=== PATIENT | male | born 1965 | race Caucasian/White ===

== ENCOUNTER 2016-07-10 09:40 | Inpatient (IN) ==
[2016-07-10] MEDS ORDERED: SODIUM CHLORIDE 0.9% 500 ML IV STA (09:55)
[2016-07-10 10:10] LABS: Basophils # 0.1 10*3/uL (0.0-0.2); Basophils % 1.1 % (0.0-0.8); Eosinophils # 0.1 10*3/uL (0.0-0.87); Eosinophils % 1.7 % (0.00-10.9); Hematocrit 41.1 VOL% (42.0-52.0); Hemoglobin 13.6 GM/DL (14.0-18.0); Immature Granulocytes Absolute 0.08 #; Lymphocytes # 1.1 10*3/uL (1.4-4.0); Lymphocytes % 14.6 % (21.2-54.2); Mean Corpuscular HGB Conc 33.1 GM/DL (32-36); Mean Corpuscular Hemoglobin 28 PG (27-34); Mean Corpuscular Volume 83.7 FL (87-102); Mean Platelet Volume 8.9 FL (9.6-12.0); Monocytes # 0.4 10*3/uL (0.11-0.8); Monocytes % 5.6 % (1.7-12.7); Platelet Count 275 T/CUMM (130-400); Red Blood Count 4.91 MC/CUMM (3.8-5.5); White Blood Count 7.8 T/CUMM (4-12)
[2016-07-10 10:20] LABS: INR 0.9; PT Patient Result 9.9 SECS; Partial Thromboplastin Time 28.3 SECS (0-40)
--- NOTE | 2016-07-10 10:25 | XRay Report ---
XR chest 1V portable Indication: Altered mental status. Comparison: Chest x-ray 03/16/2008. Technique: Portable AP chest was performed. Findings: Heart size, mediastinal contour, and hilar structures demonstrate no significant abnormalities. The lung parenchyma is clear. Bones and soft tissues demonstrate no significant abnormalities. Impression: 1. No evidence of acute pathology. 07/10/2016 10:22 AM PROCEDURE INTERPRETED AT [facility] DEPARTMENT OF RADIOLOGY Final Report Signed by: Dr. Orlando Acosta
--- NOTE | 2016-07-10 10:30 | CT Report ---
History: Mental status changes Date: 07/10/2016 Study: CT head without contrast Comparison exam: No previous similar available Transaxial CT sections were obtained through the head without IV contrast. This CT exam was performed using one or more the following dose reduction techniques: Automated exposure control, adjustment of the MA and/or KV according to patient size, or use of iterative reconstruction technique. The ventricles are midline in position without evidence of hydrocephalus. There is no mass or parenchymal hemorrhage. There is no gross CT evidence of acute cortical stroke. There is no extra-axial hematoma. There is some moderate polypoid mucosal thickening in the maxillary and ethmoid sinuses. There is evidence of previous sinus surgery with bilateral nasal antral window procedure. With regards to the sinus disease, there are some focal polypoid mucosal thickening overlying the right nasal antral window area measuring up to 18 mm. There is no acute abnormality of the bony calvarium. Impression: No acute intracranial process. Chronic sinus disease with asymmetric polypoid component on the right. Because of the asymmetric polypoid component on the right, it is recommended that patient have some clinical ENT follow-up, as the possibility of underlying sinus neoplasm cannot be completely excluded based on this single imaging study alone. PROCEDURE INTERPRETED AT [facility] DEPARTMENT OF RADIOLOGY Final Report Signed by: Dr. Kell Flores
--- NOTE | 2016-07-10 10:40 | Emergency Department Note ---
Marcial Yu Hilary, am scribing for, and in the presence of, Isidro Mcgee MD 10: 24. rAely Yu James D, MD, personally performed the services described in this documentation, ascribed by Rosey Ceja in my presence, and it is both accurate and complete . Arrival - Arrival Chief Complaint: Altered Mental Status Stated Complaint: DIABETIC-SICK ED Nursing Triage Note: Mom states that he has been confused and vomiting onset this am - accu check at time of triage 62 - pt is diaphoretic Mode of Arrival: Wheelchair Limitations: No Limitations Source: Patient, RN Notes Reviewed Time Seen by Provider: 07/10/16 09:55 - History of Present Illness HPI Narrative: Pt is a 51 y/o male presenting to the ED with c/o confusion. Pts mother is in the room and gives the history but the Hx is limited due to his AMS. She states that he came to her house this morning and states that he didnt feel well and needed to go to the ER. Pt repeatedly states "give me my sunton and my srini" but doesn't elaborate. Pt confirms confusion and vomiting. Pt has a PMHx of IDDM. Onset (ago): hour(s) Allergies/Adverse Reactions: Allergies Allergy/AdvReac Type Severity Reaction Status Date / Time No Known Allergies Allergy Unverified 07/10/16 09:43 Home Medications: Home Medications Medication Instructions Recorded Confirmed Type Albiglutide [Tanzeum] 50 mg SUBCUT Q7D 07/10/16 07/10/16 History Insulin Glargine,Hum.rec.anlog 0 unit SUBCUT BEDTIME 07/10/16 07/10/16 History [Lantus SoloStar] Insulin Lispro [HumaLOG KwikPen] 35 unit SUBCUT TID 07/10/16 07/10/16 History Liraglutide [Victoza 2-Zack] 1.8 mg SUBCUT DAILY 07/10/16 07/10/16 History Losartan Potassium 200 mg PO DAILY 07/10/16 07/10/16 History Metformin HCl [Metformin HCl ER] 2,000 mg PO BEDTIME 07/10/16 07/10/16 History Olmesartan/Amlodipin/Hcthiazid 1 each PO DAILY 07/10/16 07/10/16 History [Nbdkoxj-Zksuqs-Nvfr 40-5-12.5] Simvastatin 40 mg PO DAILY 07/10/16 07/10/16 History amLODIPine [Norvasc] 5 mg PO DAILY 07/10/16 07/10/16 History Review of System - Review of System ROS unobtainable: due to mental status 12 point system: reviewed and no additional remarkable complaints except as stated - Review of System Constitutional: Present: other (Confusion) Gastrointestinal: Present: vomiting Medical,Surgical,& Family Hx - Medical History Endocrine: History of: Diabetes Mellitus (IDDM) - Social History Smoking Status: Never smoker Frequency of Alcohol Use: None Type of Drug Use: None Exam Physical Examination: GENERAL: Slightly agitated, delirious white male. Follows commands but wont answer questions. VITAL SIGNS: Temperature: 97.8 Pulse: 110 Respiratory: 22 Blood Pressure: 139/77 O2Sat: 97 HEENT: Head is normocephalic and atraumatic. Pupils are equally round and reactive to light. Extraocular movement are intact. Oropharynx is benign with moist mucous membranes. NECK: Neck is soft and supple without tenderness. There are no masses. There is no lymphadenopathy. LUNGS: Lungs are clear to auscultation bilaterally. Chest rises symmetrically. There is no chest wall tenderness. CV: Heart is regular rate and rhythm without murmurs, rubs, or gallops. ABDOMEN: Abdomen is soft, non-tender to palpation. There are no abnormal masses palpated. There is no organomegaly. Bowel sounds are present and active. SKIN: Skin is warm and dry. No rash. EXTREMITIES: Patient has full range of motion without tenderness. There is no pedal edema. NEUROLOGIC: Awake, alert, and oriented x4. Cranial nerves II through XII are grossly intact. There are no motorsensory deficits. PSYCHIATRIC: Normal affect. Normal mood. Vital Signs: Vital Signs Temperature 97.8 F 07/10/16 09:50 Pulse Rate 110 H 07/10/16 09:50 Respiratory Rate 22 07/10/16 09:50 Blood Pressure 139/77 07/10/16 09:50 O2 Sat by Pulse Oximetry 97 07/10/16 09:43 Course - Consultations Consultation #1: Discussed with hospitalist. Patient will be admitted to their service Time: 12:12 Results - Labs CBC & BMP: 07/10/16 09:54 07/10/16 09:54 Lab Results: I have reviewed the patients labs Labs: Laboratory Tests 07/10/16 07/10/16 09:54 09:54 WBC 7.8 RBC 4.91 Hgb 13.6 L Hct 41.1 L MCV 83.7 L MPV 8.9 L Neut % (Auto) 76.0 H Lymph % (Auto) 14.6 L Baso % (Auto) 1.1 H Lymph # (Auto) 1.1 L Ammonia 33 H Laboratory Tests 07/10/16 09:54 Ammonia 33 H Troponin I < 0.015 TSH 3rd Generation 0.886 Laboratory Tests 07/10/16 07/10/16 07/10/16 09:54 10:42 Unknown Sodium 141 Potassium 4.1 Chloride 105 Carbon Dioxide 26 Glucose 65 L Urine Color Yellow Urine Appearance Clear Urine Urobilinogen < 2.0 H Serum Alcohol < 15 L - Diagnostic Findings Procedure: Chest x-ray: report reviewed by me, image reviewed by me (1. No evidence of acute pathology), CT: image reviewed by me (CT head: No acute intracranial lesion or hemorrhage.) Disposition Clinical Impression: Altered mental status, Delirium, Hypoglycemia Case discussed with: patient, patient's family Disposition: Still a Patient Condition: Guarded Time of Disposition: 12:12
[2016-07-10 10:48] LABS: Ammonia 33 UMOL/L (11-32)
[2016-07-10 10:57] LABS: Apearance,Urine CLEAR (Clear); Bilirubin,Urine Negative (Negative); Blood, Urine Negative (Negative); Glucose,Urine (UA) 50 mg/dL (Negative); Hyaline Casts,Urine 1 /LPF (0-3); Ketones,Urine Negative (Negative); Nitrite,Urine Negative (Negative); Protein,Urine Negative; RBC,Urine 2 /HPF (0-4); Urine Color Yellow (Yellow); Urine Specific Gravity 1.024 (1.001-1.035); Urine Urobilinogen < 2.0 EU/DL (0.2-1.0); WBC,Urine <1 /HPF (0-6)
[2016-07-10 11:00] LABS: Alanine Aminotransferase 32 U/L (16-61); Albumin 4.1 G/DL (3.4-5.0); Alkaline Phosphatase 78 U/L (45-117); Aspartate Amino Transferase 24 U/L (0-37); Blood Urea Nitrogen 16 MG/DL (7-18); Calcium 9.1 MG/DL (8.5-10.1); Glucose 65 MG/DL (74-106); Osmolality,Calculated 279.3 MOS/KG (273-304); Potassium 4.1 MMOL/L (3.5-5.1); Sodium 141 MMOL/L (136-145); Thyroid Stimulating Hormone 0.886 uIU/ml (0.358-3.74); Troponin I Only < 0.015 NG/ML (0.00-0.045)
[2016-07-10 11:03] LABS: Barbiturates Screen,Urine Negative (Negative); Benzodiazepines Screen,Urine Negative (Negative); Cannabinoid Screen,Urine Negative (Negative); Opiate Screen,Urine Negative (Negative); Phencyclidine Screen,Urine Negative (Negative)
[2016-07-10] MEDS ORDERED: DEXTROSE 50% 25 GM/50 ML VIAL IV STA (11:05)
[2016-07-10] MEDS ORDERED: DEXTROSE 50% 25 GM/50 ML VIAL IV ONE (11:06)
[2016-07-10] MEDS ORDERED: ONDANSETRON 4 MG/2 ML VIAL ONE (12:30)
[2016-07-10] MEDS ORDERED: ONDANSETRON 4 MG/2 ML VIAL IV STA (12:31)
--- NOTE | 2016-07-10 13:29 | Hospitalist History & Physical ---
Assessment and Plan (1) Altered mental status Status: Acute Assessment and plan: The patient presented grossly altered; however the origin of his altered mental status has not yet been identified. Urinalysis was essentially negative, toxicology reports were negative and CT scan was unremarkable. There was a slight elevation in the patient's ammonia level. This altered mental status may have been related to his hypoglycemic episode. The family adamantly denied any illicit drug or alcohol use; however the family did report an episode similar in nature before when the patient accidentally took his insulin twice in 1 day. This may be the case however; we will follow closely and monitor. The patient will be placed in intensive care for close observation. Current Visit: Yes (2) Hypoglycemia Status: Acute Assessment and plan: Blood glucose levels were noted at 65 at the time of admission, the patient was given dextrose 50%. His blood sugars did improve. We will start Accu-Cheks with sliding scale coverage, obtain a hemoglobin A1c, and monitor closely. Current Visit: Yes History of Present Illness Chief complaint: altered mental status History of present illness: This is a pleasantly confused 51-year-old male that presented to the ED at [facility] for the evaluation of altered mental status. The patient has a medical history significant for insulin dependent diabetes mellitus, hypertension, dyslipidemia, and morbid obesity. There is no surgical history reported at the time of admission. The patient presented grossly altered. His family is at bedside, they will serve historians. His brother reports that the patient started experiencing symptoms earlier this morning. He went to his mother's house and informed her that he did not feel well and that he needed to go to the ED. His brother also reported that he is spoke with the patient on last night and that the patient was at his normal state. During the conversation his brother reports that the patient told him that he was about to have dinner the and go to bed. He reports that this is not his brothers were normal mental state. He reports that his brother lives alone, drives his own car, and has gainful employment. His brother denies any knowledge of his brother's use of any illicit drugs or alcohol. His mother became alarmed and transported him to the ED for further evaluation. At the time of ED presentation, the patient was noted to be experiencing hypoglycemia with a blood sugar noted at 62. He was diaphoretic and complained of nausea. His speech was bizarre and not easily understood. The patient was given dextrose 5% intravenously and his blood sugars improved to 119. Labs were obtained which revealed a hemoglobin of 13.6, hematocrit of 41.4, TSH of 0.886, and an ammonia level of 33. Cardiac enzymes were ordered which reported a troponin at less than 0.015. CT of the head was performed and was essentially unremarkable. Chest x-ray was performed which was essentially absent for any evidence of acute pathology. After brief discussion with both Dr. Mcgee and Dr. Stevenson, the patient will be admitted to the hospitalist services for continuation of care. Home Medications Medication Instructions Recorded Confirmed Type Albiglutide [Tanzeum] 50 mg SUBCUT Q7D 07/10/16 07/10/16 History Insulin Glargine,Hum.rec.anlog 0 unit SUBCUT BEDTIME 07/10/16 07/10/16 History [Lantus SoloStar] Insulin Lispro [HumaLOG KwikPen] 35 unit SUBCUT TID 07/10/16 07/10/16 History Liraglutide [Victoza 2-Zack] 1.8 mg SUBCUT DAILY 07/10/16 07/10/16 History Losartan Potassium 200 mg PO DAILY 07/10/16 07/10/16 History Metformin HCl [Metformin HCl ER] 2,000 mg PO BEDTIME 07/10/16 07/10/16 History Olmesartan/Amlodipin/Hcthiazid 1 each PO DAILY 07/10/16 07/10/16 History [Ipfpwcd-Nszsqa-Sjvd 40-5-12.5] Simvastatin 40 mg PO DAILY 07/10/16 07/10/16 History amLODIPine [Norvasc] 5 mg PO DAILY 07/10/16 07/10/16 History Allergies Allergy/AdvReac Type Severity Reaction Status Date / Time No Known Allergies Allergy Unverified 07/10/16 09:43 Medical,Surgical,& Family Hx - Medical History Endocrine: History of: Diabetes Mellitus (IDDM) - Social History Smoking Status: Never smoker Frequency of Alcohol Use: None Type of Drug Use: None ROS unobtainable: due to delirium Exam - Constitutional Vitals: Period Temp Pulse Resp BP Sys/Kruse Pulse Ox Last 24 Hr 97.8 F-97.8 F 110-110 22-22 139-139/77-77 97 General appearance: mild distress, morbidly obese - Head Head exam: Present: normal inspection, normocephalic, atraumatic - Eye Eye exam: Present: EOMI. Absent: conjunctival injection, nystagmus Pupils: Present: KIMANI, normal accommodation - ENT ENT exam: Present: normal exam, normal external ear exam, normal oropharynx - Neck Neck exam: Present: normal inspection. Absent: lymphadenopathy, meningismus, tenderness, thyromegaly - Respiratory Respiratory exam: Present: clear to auscultation bilaterally. Absent: rales, rhonchi, stridor, wheezes - Cardiovascular Cardiovascular exam: Present: bradycardia, regular rate and rhythm. Absent: carotid bruit, diastolic murmur, gallop, JVD, rubs, systolic murmur - GI/Abdominal GI/Abdominal exam: Present: normal bowel sounds, soft, other (nausea) - Extremities Exam Extremities exam: Present: normal inspection, normal capillary refill, full ROM , calf tenderness. Absent: edema - Back Exam Back exam: Present: normal inspection - Neurological Exam Neurological exam: Present: alert, altered - Psychiatric Psychiatric exam: Present: normal affect, normal mood - Skin Skin exam: Present: normal color, warm, dry Results - Labs CBC & BMP: 07/10/16 09:54 07/10/16 09:54 Lab Results: I have reviewed the past 24 hour labs
[2016-07-10] MEDS ORDERED: DEXTROSE 50% 25 GM/50 ML VIAL IV PRN (14:35)
[2016-07-10] MEDS ORDERED: NIFEdipine 10 MG CAPSULE PO PRN (14:35)
[2016-07-10] MEDS ORDERED: ACETAMINOPHEN 325 MG TABLET PO PRN (14:35)
[2016-07-10] MEDS ORDERED: GLUCAGON 1 MG VIAL IM PRN (14:35)
[2016-07-10] MEDS ORDERED: DEXTROSE 5% NACL 0.45% 1,000 ML IV SCH (14:35)
[2016-07-10] MEDS: ENOXAPARIN 40 MG/0.4 ML SYRINGE SUBCUT SCH (14:50)
[2016-07-10] MEDS: PANTOPRAZOLE 40 MG TABLET PO SCH (15:43)
[2016-07-10] MEDS ORDERED: INSULIN LISPRO 100 UNIT/ML SUBCUT SCH ×2 (16:47→18:00)
[2016-07-10] MEDS: ONDANSETRON 4 MG/2 ML VIAL IV PRN ×2 (17:01→21:02)
[2016-07-10] MEDS: DEXTROSE 10% 1,000 ML IV SCH (17:52)
[2016-07-10] MEDS: INSULIN LISPRO 100 UNIT/ML SUBCUT SCH ×2 (21:13→21:19)
[2016-07-11] MEDS: INSULIN LISPRO 100 UNIT/ML SUBCUT SCH ×6 (02:50→23:40)
[2016-07-11] MEDS: ONDANSETRON 4 MG/2 ML VIAL IV PRN (03:13)
[2016-07-11 05:21] LABS: Basophils # 0.1 10*3/uL (0.0-0.2); Basophils % 0.8 % (0.0-0.8); Eosinophils # 0.2 10*3/uL (0.0-0.87); Eosinophils % 2.4 % (0.00-10.9); Hematocrit 37.5 VOL% (42.0-52.0); Hemoglobin 12.1 GM/DL (14.0-18.0); Immature Granulocytes % 0.7 %; Immature Granulocytes Absolute 0.04 #; Lymphocytes # 1.4 10*3/uL (1.4-4.0); Lymphocytes % 23.1 % (21.2-54.2); Mean Corpuscular HGB Conc 32.3 GM/DL (32-36); Mean Corpuscular Hemoglobin 27 PG (27-34); Mean Corpuscular Volume 83.9 FL (87-102); Monocytes # 0.5 10*3/uL (0.11-0.8); Monocytes % 7.5 % (1.7-12.7); Neutrophils % 65.5 % (38.7-73.9); Platelet Count 263 T/CUMM (130-400); Red Blood Count 4.47 MC/CUMM (3.8-5.5); Red Cell Distribution Width 14.4 % (9.3-17.3); White Blood Count 6.2 T/CUMM (4-12)
[2016-07-11] MEDS: DEXTROSE 10% 1,000 ML IV SCH ×5 (05:25→22:13)
[2016-07-11 06:08] LABS: Blood Urea Nitrogen 11 MG/DL (7-18); Calcium 8.3 MG/DL (8.5-10.1); Glucose 92 MG/DL (74-106); Magnesium 2.2 MG/DL (1.8-2.4); Osmolality,Calculated 277.4 MOS/KG (273-304); Potassium 3.7 MMOL/L (3.5-5.1); Sodium 140 MMOL/L (136-145); Troponin I Only < 0.015 NG/ML (0.00-0.045)
[2016-07-11] MEDS ORDERED: PNEUMOCOCCAL VACCINE (13 VALENT) 0.5 ML SYRINGE IM ONE (09:00)
[2016-07-11] MEDS: PANTOPRAZOLE 40 MG TABLET PO SCH (09:23)
[2016-07-11] MEDS: AMLODIPIN PO SCH (09:23)
[2016-07-11] MEDS: amLODIPine 5 MG TABLET PO SCH (09:23)
[2016-07-11] MEDS: HCTHIAZID PO SCH (09:23)
[2016-07-11] MEDS: OLMESARTAN PO SCH (09:23)
--- NOTE | 2016-07-11 09:31 | Hospitalist Progress Note ---
Hospitalist: Subjective Interval history: The patient was admitted to the hospital with profound hypoglycemia and cerebral symptoms. The patient's mental status is improving with support of glucose. He is now on D10 infusion. The patient did have some blood glucose about 45 earlier this morning. The patient's family now states that he has had pituitary operation in the past. I am going to order MRI scan to reevaluate the brain. I will order cortisol level to rule out adrenal insufficiency. Exam - Constitutional Vitals: Period Temp Pulse Resp BP Sys/Kruse Pulse Ox Last 24 Hr 97.8 F-99.3 F 86-115 12-26 102-167/57-99 93-100 Results - Labs CBC & BMP: 07/11/16 04:44 07/11/16 04:44
--- NOTE | 2016-07-11 12:43 | Magnetic Resonance Report ---
Exam: MR head/brain w and wo con Date: 07/11/2016 4:00 AM Comparison: CT brain 07/10/2016 Indication: Headache, history of pituitary tumor resection, short-term memory loss, bizarre speech Technique:[Multiple acquisitions were obtained including sagittal T1 scans before and after injection of 20 cc of Dotarem, coronal T1 scans with contrast, and axial ADC, diffusion, FLAIR, T2, GRE, and T1 scans before and after the injection of contrast. Scans were obtained on a 1.5 Mansi magnet.] Findings: The ventricles are normal in size with no midline displacement. No definite pituitary mass is identified. The cerebellar tonsils are normal in location. No acute infarction is identified on the diffusion scans. No evidence of hemorrhage, extracerebral collection, mass, or abnormal enhancement. Mucosal thickening/fluid in the paranasal sinuses with polypoidal findings. No acute findings are identified in the orbits, temporal bones, [place] of [place], or venous sinuses. Impression: No definite acute intracranial pathology is identified. Minimal cerebral atrophy. No obvious pituitary mass is identified with history of apparent prior pituitary surgery. Sinusitis including retention cysts/polyps. Again the findings are somewhat asymmetric on the right and follow-up is recommended. PROCEDURE INTERPRETED AT [facility] DEPARTMENT OF RADIOLOGY Final Report Signed by: Dr. Lizbeth Goode
--- NOTE | 2016-07-11 12:46 | Physician Query Form ---
CLICK EDIT DOCUMENT TO SELECT QUERY ANSWER --> OK --> SIGN Tana Hunt RN Clinical Transit Manager W) [phone] (f) [phone] [email or web address] PROVIDERS: Make your selection(s) from the choices in EACH section by typing an "x" and enter comments in the comment section. Please use your independent medical judgment in providing your response. This request does not imply that any particular answer is desired or expected. CLINICAL INDICATORS: (Providers should not edit this section) Based on documentation of "Confusion" "Acute altered mental status" "Acute hypoglycemia" "Diaphoretic. speech was bizarre and not easily understood" Given D5 IV and his blood sugars improved to 119" "The patient's mental status is improving with support of glucose. He is now on D10 infusion." ACUITY: ( x) Acute ( ) Acute on Chronic ( ) Chronic ( ) Clinically unable to determine NATURE: ( x) Delirium due to general medical condition ( ) Dementia ( ) Encephalopathy ( ) Unconscious ( ) Transient level of awareness ( ) Comatose ( ) Locked-in State ( ) Persistent Vegetative State ( ) Other, please specify: ( ) Clinically unable to determine Please indicate the underlying cause of the altered mental status (CHECK ALL THAT APPLY): ( ) Baseline dementia ( ) Alzheimer's disease ( ) Parkinson's disease ( ) Lewy body dementia ( ) Acute stroke ( ) Late effect of stroke ( ) Reactive (from emotional stress, psychological trauma) ( ) Due to narcotics/other drugs ( ) Post procedural delirium ( ) Transient ischemic attack ( ) Generalized cerebral edema ( ) Normal pressure hydrocephalus ( ) Psychiatric illness ( ) Other, please specify: (x ) Clinically unable to determine Please indicate if there is an infection, sepsis, dehydration or specific organ failure that is causing the dementia. Be specific with clarifying the relationship between that process and the mental status change. COMMENTS: PLEASE ALSO DOCUMENT RESPONSE IN PROGRESS NOTES AND/OR DISCHARGE SUMMARY Use of terms such as suspected, likely, or probable (associated with a specific diagnosis that is being evaluated, monitored, or treated as if it exists) are acceptable and can be restated in the discharge summary if not ruled out. MTDD
[2016-07-11] MEDS: ENOXAPARIN 40 MG/0.4 ML SYRINGE SUBCUT SCH (15:54)
[2016-07-12] MEDS: INSULIN LISPRO 100 UNIT/ML SUBCUT SCH ×5 (03:54→21:15)
[2016-07-12 04:39] LABS: Albumin 3.2 G/DL (3.4-5.0); Bilirubin,Total 0.5 MG/DL (0.2-1.0); Calcium 8.4 MG/DL (8.5-10.1); Magnesium 2.4 MG/DL (1.8-2.4); Osmolality,Calculated 280.7 MOS/KG (273-304); Potassium 3.8 MMOL/L (3.5-5.1)
[2016-07-12] MEDS: HCTHIAZID PO SCH (08:11)
[2016-07-12] MEDS: AMLODIPIN PO SCH (08:11)
[2016-07-12] MEDS: OLMESARTAN PO SCH (08:11)
[2016-07-12] MEDS: PANTOPRAZOLE 40 MG TABLET PO SCH (08:11)
[2016-07-12] MEDS: DEXTROSE 10% 1,000 ML IV SCH ×3 (08:12→18:18)
[2016-07-12] MEDS: amLODIPine 5 MG TABLET PO SCH (09:29)
--- NOTE | 2016-07-12 11:17 | Hospitalist Progress Note ---
Assessment and Plan (1) Diabetes type 2, uncontrolled Status: Acute Assessment and plan: The patient is admitted to the hospital with profound hypoglycemia on long- acting agents. The patient was initially disoriented but is improving now. Glucose is being supported with dextrose infusion and I am reducing the infusion as the hypoglycemia severity is improving. The patient is ready for transfer to the floor and hopefully he can come off of the dextrose infusion by the end of the day. Current Visit: Yes Qualifiers: Diabetes mellitus complication status: with hypoglycemia Diabetes mellitus complication detail: without coma Diabetes mellitus emt intermediate insulin use: with assisted use Qualified Code(s): E11.649 - Type 2 diabetes mellitus with hypoglycemia without coma; Z79.4 - long-term (current) use of insulin Hospitalist: Subjective Interval history: The patient is alert and awake. Blood glucose is elevated on dextrose infusion. The patient is oriented in 4 respects today. The patient does not complain of chest pain or palpitations. Exam - Constitutional Vitals: Period Temp Pulse Resp BP Sys/Kruse Pulse Ox Last 24 Hr 97.9 F-98.7 F 72-100 14-28 105-156/63-109 92-97 Exam: Constitutional System: No distress. No tremulousness. Head: Normocephalic, atraumatic. Ears, Nose and Throat System: No evidence of Otitis or Mastoiditis. No epistaxis or discharge Eyes System: Pupils equal, round, and reactive. Extraocular muscles intact. Neck: Supple, without adenopathy, No jugular venous distention. No thyromegaly , neck mass, or prior surgery apparent. Respiratory System: Chest clear to auscultation. Cardiovascular System: Heart with regular rate and rhythm. No murmur. GI System: Abdomen soft, nontender. Normo active bowel sounds present. Musculoskeletal System: limbs with no pedal edema. Full distal pulses. Neurological System: No discernable sensory deficit. No aphasia Psychiatric System: Conversation is rational Results - Labs CBC & BMP: 07/11/16 04:44 07/12/16 03:55 Lab Results: I have reviewed the past 24 hour labs
[2016-07-12] MEDS: ENOXAPARIN 40 MG/0.4 ML SYRINGE SUBCUT SCH (16:13)
[2016-07-13 06:39] LABS: Calcium 8.5 MG/DL (8.5-10.1); Magnesium 2.4 MG/DL (1.8-2.4); Osmolality,Calculated 285.8 MOS/KG (273-304); Potassium 4.5 MMOL/L (3.5-5.1)
--- NOTE | 2016-07-13 08:08 | Hospitalist Progress Note ---
Assessment and Plan - Time spent with patient Time spent with patient: Less than 30 minutes (1) Altered mental status Status: Resolved Assessment and plan: Altered mental status likely secondary to his hypoglycemia which is now resolved. Current Visit: Yes (2) Diabetes type 2, uncontrolled Status: Acute Assessment and plan: He has type 2 diabetes mellitus which is been very difficult to control. With his initial hypoglycemia on presentation and now hyperglycemia with a fairly intense regimen as an outpatient, we will begin a basal bolus regimen today and observe over the next 24 hours with the expectation that he likely can go home with continued outpatient adjustment in his medical regimen and close follow-up with his primary care provider Dr. Alexandro Nayak. Current Visit: Yes Qualifiers: Diabetes mellitus complication status: with hypoglycemia Diabetes mellitus complication detail: without coma Diabetes mellitus manager terminal insulin use: with longterm use Qualified Code(s): E11.649 - Type 2 diabetes mellitus with hypoglycemia without coma; Z79.4 - manager terminal (current) use of insulin Hospitalist: Subjective Interval history: Chart reviewed and patient examined. He denies any headache, chest pain, shortness breath, abdominal pain, nausea, vomiting, diarrhea, constipation. Had a long discussion about his treatment of diabetes and his prior treatment regimen. With his recent hypoglycemia and associated mental status changes with now hyperglycemia and prior outpatient medicine regimen that was pretty intense, for likely should start a basal bolus regimen while still in the hospital and observed over the next 24 hours. Exam - Constitutional Vitals: Period Temp Pulse Resp BP Sys/Kruse Pulse Ox Last 24 Hr 96.9 F-98.4 F 76-97 14-28 105-150/59-99 94-97 General appearance: no acute distress - Head Head exam: Present: normocephalic, atraumatic - Eye Eye exam: Present: EOMI Pupils: Present: KIMANI - ENT ENT exam: Present: normal exam - Neck Neck exam: Present: normal inspection - Respiratory Respiratory exam: Present: clear to auscultation bilaterally - Cardiovascular Cardiovascular exam: Present: regular rate and rhythm - GI/Abdominal GI/Abdominal exam: Present: normal bowel sounds, soft. Absent: tenderness, rebound - Extremities Exam Extremities exam: Absent: calf tenderness, edema - Back Exam Back exam: Present: normal inspection - Neurological Exam Neurological exam: Present: alert, oriented X3, CN II-XII intact. Absent: motor sensory deficit - Psychiatric Psychiatric exam: Present: normal affect, normal mood. Absent: agitated, anxious - Skin Skin exam: Present: warm, dry. Absent: erythema Results - Labs CBC & BMP: 07/11/16 04:44 07/13/16 05:16 Lab Results: I have reviewed the past 24 hour labs
[2016-07-13] MEDS: INSULIN GLARGINE 100 UNIT/ML SUBCUT SCH (09:04)
[2016-07-13] MEDS: amLODIPine 5 MG TABLET PO SCH (09:06)
[2016-07-13] MEDS: SIMVASTATIN 40 MG TABLET PO SCH (09:06)
[2016-07-13] MEDS: INSULIN LISPRO 100 UNIT/ML SUBCUT SCH ×6 (09:07→20:26)
[2016-07-13] MEDS: OLMESARTAN PO SCH (09:12)
[2016-07-13] MEDS: AMLODIPIN PO SCH (09:12)
[2016-07-13] MEDS: HCTHIAZID PO SCH (09:12)
[2016-07-13] MEDS: PANTOPRAZOLE 40 MG TABLET PO SCH (09:13)
[2016-07-13] MEDS: ENOXAPARIN 40 MG/0.4 ML SYRINGE SUBCUT SCH (16:26)
[2016-07-14] MEDS: INSULIN LISPRO 100 UNIT/ML SUBCUT SCH ×4 (08:18→11:50)
[2016-07-14] MEDS: INSULIN GLARGINE 100 UNIT/ML SUBCUT SCH (08:19)
[2016-07-14] MEDS: PANTOPRAZOLE 40 MG TABLET PO SCH (08:20)
[2016-07-14] MEDS: amLODIPine 5 MG TABLET PO SCH (08:20)
[2016-07-14] MEDS: SIMVASTATIN 40 MG TABLET PO SCH (08:20)
[2016-07-14] MEDS: AMLODIPIN PO SCH (08:21)
[2016-07-14] MEDS: HCTHIAZID PO SCH (08:21)
[2016-07-14] MEDS: OLMESARTAN PO SCH (08:21)
[2016-07-14 09:36] VITALS: BP 134/95
--- NOTE | 2016-07-14 09:41 | Discharge Summary ---
Hospital Course - Hospital Course Hospital Course: 51-year-old morbidly obese male with a history of insulin-dependent diabetes and hypertension presents to the emergency room with altered mental status due to hypoglycemia. Patient is on a fairly intense insulin regimen. His blood sugars dropped down to a low of 41 and are now up to 383. We have restarted him on Lantus of 25 units and he will continue his Victoza and a lower dose of metformin. He also was receiving short acting insulin 3 times a day which we dropped from 35 units to 10 units. His blood pressure was rather low on the high dose of losartan and this was reduced. He will continue on the Norvasc as prescribed. Patient feels good today and will be discharged home with follow- up with Dr. Vega in 1 week. - Time spent with patient Time with patient DS: Less than 30 minutes Discharge Plan - Discharge Data Disposition: Disch To Home/Self Care Condition at Discharge: Stable Discharge Diet: diabetic diet Activity: resume usual activities as tolerated Hygiene: no restrictions Weight Bearing at Discharge: full weight bearing Driving: no restrictions - Discharge Medications Continue Liraglutide [Victoza 2-Zack] 1.8 mg SUBCUT DAILY amLODIPine [Norvasc] 5 mg PO DAILY Simvastatin 40 mg PO DAILY Changed Insulin Lispro [HumaLOG KwikPen] 10 unit SUBCUT TID #0 Losartan Potassium 50 mg PO DAILY #0 Metformin HCl [Metformin HCl ER] 1,000 mg PO BEDTIME #0 Insulin Glargine,Hum.rec.anlog [Lantus SoloStar] 25 unit SUBCUT DAILY #0 Discontinued Olmesartan/Amlodipin/Hcthiazid [Tqbwqko-Fddagl-Gelr 40-5-12.5] 1 each PO DAILY - Follow Up or Referral Follow Up: dr lupis [Other] - 1 Week - Forms/Instructions Exam - Constitutional Vitals: Period Temp Pulse Resp BP Sys/Kruse Pulse Ox Last 24 Hr 97.1 F-98.3 F 73-96 14-20 124-139/73-86 95-100 General appearance: no acute distress, over weight - Respiratory Respiratory exam: Present: clear to auscultation bilaterally. Absent: rhonchi, wheezes - Cardiovascular Cardiovascular exam: Present: regular rate and rhythm. Absent: systolic murmur - GI/Abdominal GI/Abdominal exam: Present: normal bowel sounds. Absent: tenderness, soft - Extremities Exam Extremities exam: Present: normal inspection, normal capillary refill - Neurological Exam Neurological exam: Present: alert, oriented X3 - Psychiatric Psychiatric exam: Present: normal affect, normal mood Discharge Results Labs on day of discharge: Labs from last 24 hours 07/14/16 07/13/16 07/13/16 07:11 19:52 16:05 POC Glucose 383 H 321 H 161 H 07/13/16 07/10/16 07/10/16 11:37 12:06 09:43 POC Glucose 362 H 119 H 62 L DS: Provider Date of admission: 07/10/16 13:08 Primary care physician: JOSE DE JESUS BOB Attending physician on admission: Baldemar Stevenson MD Consults: 07/10/16 14:18 Consult to [facility], Educator [CONS] Routine Reason for Drafter Patent: Diabetes Education 07/10/16 14:22 Consult to Pastoral Services [CONS] Routine Comment: Pastoral Screen: Request L D Rn Visit Pastoral Screen Source of Request: Family 07/10/16 17:03 Consult to Physician [CONS] Routine Comment: short term memory loss, hx of pituitary tumor Consulting Provider: Gutierrez Wan Consulting Provider Notified: Yes Consult to Specialist Group: Neurology Person Notified: Lissett Date Notified: 07/10/16 Time Notified: 16:42 Discharging clinician: Monse Vilchis MD
== END 2016-07-14 12:04 | disposition home or self-care (01) | DRG 638 ==
LOC: N.ED 09:40 → N.EDINP 13:08 → SUATTDRO 13:08 → N.EDINP 14:05 → N.ICU 14:20 → N.5E 07-12 13:13
PROVIDERS: ADMIT Internal Medicine; ATTEND Internal Medicine